=== PATIENT | female | born 1965 | race African-American/Black ===

== ENCOUNTER 2022-04-23 18:51 | Emergency (ER) | payer MEDICAID, OTHER ==
[~2022-04-23] VITALS: Ht 167.6 cm; Wt 89.0 kg
[2022-04-23 19:06] VITALS: BP 179/109
== END 2022-04-24 02:32 | disposition left against medical advice (07) ==
LOC: ER 18:51
DX: Z53.21 Procedure and treatment not carried out due to patient leaving prior to being seen by health care provider (principal)
CPT/HCPCS: 82962